=== PATIENT | female | born 1985 | race African-American/Black ===

== ENCOUNTER 2023-01-01 02:40 | Inpatient (IN) | payer OTHER, SELFPAY ==
[2023-01-01] MEDS ORDERED: Lorazepam 2 MG/ML VIAL SLOW IVP PRN ×2 (04:44→11:21)
[2023-01-01] MEDS ORDERED: Dextrose 5% in Water 1,000 ML IV SCH (04:45)
[2023-01-01] MEDS ORDERED: Ondansetron ODT 4 MG TAB SL PRN (04:45)
[2023-01-01] MEDS ORDERED: Ondansetron PF 4 MG/2 ML Vial IVP PRN (04:45)
[2023-01-01 05:05] VITALS: BMI 27.4
[2023-01-01] MEDS ORDERED: Lorazepam 1 MG TAB PO PRN (08:57)
[2023-01-01] MEDS ORDERED: Ondansetron ODT 4 MG TAB PO PRN (08:57)
[2023-01-01] MEDS ORDERED: Lorazepam 2 MG/ML VIAL IM PRN (08:57)
[2023-01-01] MEDS ORDERED: Sodium Chloride 0.9% 1,000 ML IV SCH (09:00)
[2023-01-01] MEDS ORDERED: Electrolyte Replacement Protocol 1 EACH FS SCH (09:00)
[2023-01-01] MEDS ORDERED: Electrolyte Replacement Protocol FS PRN (09:15)
[2023-01-01] MEDS: Lorazepam 1 MG TAB PO SCH ×3 (09:30→20:09)
[2023-01-01] MEDS: Thiamine HCl 200 MG/2 ML VIAL SLOW IVP SCH (09:30)
[2023-01-01] MEDS: Folic Acid 1 MG TAB PO SCH (09:30)
[2023-01-01] MEDS: Multivit, Therapeutic 1 TAB PO SCH (09:30)
[2023-01-01 10:32] LABS: #Monocytes 0.3 thou/uL (0.11-0.59); #Neutrophils 1.8 thou/uL (1.40-6.50); %Lymphocytes 44.3 % (21.0-51.0); %Monocytes 7.6 % (0.0-10.0); %Neutrophils 46.3 % (42.0-75.0); Hematocrit 29.2 % (36.0-47.0); Mean Corpuscular HGB CONC 34.2 g/dL (32.0-36.0); Mean Corpuscular Volume 99.3 fl (78.0-98.0); Mean Platelet Volume 10.1 fL (7.4-10.4); Platelet Count 133 10x3/uL (130-400); RBC Distribution Width 18.6 % (11.5-14.5); Red Blood Cell (RBC) Count 2.94 mill/uL (4.20-5.40)
[2023-01-01 10:57] LABS: ALT (SGPT) 64 U/L (8-55); AST (SGOT) 386 U/L (5-34); Albumin 3.5 g/dL (3.5-5.0); Alkaline Phosphatase 203 U/L (40-110); Anion Gap 13 mmol/L (10-20); BUN (Urea Nitrogen) 4 mg/dL (7.0-18.7); Bilirubin, Total 3.1 mg/dL (0.2-1.2); Calc. Creatinine Clearance 136 mL/min (70-130); Calcium 7.6 mg/dL (7.8-10.44); Carbon Dioxide 20 mmol/L (22-29); Chloride 100 mmol/L (98-107); Estimated GFR 104; Globulin 3.5 g/dL (2.4-3.5); Glucose 112 mg/dL (70-105); Magnesium 1.6 mg/dL (1.6-2.6); Sodium 130 mmol/L (136-145)
[2023-01-01] MEDS ORDERED: Potassium Chloride 20 MEQ TAB PO SCH ×2 (12:30→18:45)
[2023-01-01] MEDS ORDERED: Magnesium 2 GM/50 ML(in water) 2 GM in Premix Bag 1 BAG IVPB SCH (12:30)
[2023-01-01 14:00] LABS: INR-International Normal Ratio 1.1; Prothrombin Time 14.4 sec (12.0-14.7)
[2023-01-01] MEDS: Multivitamins, Adult 10 ML, Folic Acid 1 MG, Thiamine HCl 100 MG in Dextrose 5 %-0.45 %... IV SCH (14:03)
[2023-01-01 17:43] LABS: Potassium 3.3 mmol/L (3.5-5.1)
[2023-01-01] MEDS ORDERED: Metoprolol Tartrate 5 MG/5 ML VIAL IVP PRN (18:25)
[2023-01-02] MEDS: Lorazepam 1 MG TAB PO SCH ×3 (02:31→15:25)
[2023-01-02 05:05] LABS: Hematocrit 33.2 % (36.0-47.0); Mean Corpuscular HGB CONC 33.1 g/dL (32.0-36.0); Mean Corpuscular Hemoglobin 33.7 pg (27.0-31.0); Mean Corpuscular Volume 101.8 fl (78.0-98.0); Mean Platelet Volume 10.7 fL (7.4-10.4); Platelet Count 133 10x3/uL (130-400); RBC Distribution Width 18.6 % (11.5-14.5); Red Blood Cell (RBC) Count 3.26 mill/uL (4.20-5.40); White Blood Cell (WBC) Count 3.2 10x3/uL (4.8-10.8)
[2023-01-02 05:06] LABS: Delete Auto Diff?? YES; Manual Diff?? YES
[2023-01-02 05:30] LABS: ALT (SGPT) 70 U/L (8-55); AST (SGOT) 383 U/L (5-34); Albumin 3.7 g/dL (3.5-5.0); Alkaline Phosphatase 222 U/L (40-110); Anion Gap 13 mmol/L (10-20); BUN (Urea Nitrogen) Less than 4 mg/dL (7.0-18.7); Bilirubin, Total 3.8 mg/dL (0.2-1.2); Calc. Creatinine Clearance 138 mL/min (70-130); Calcium 8.6 mg/dL (7.8-10.44); Carbon Dioxide 19 mmol/L (22-29); Chloride 105 mmol/L (98-107); Estimated GFR 106; Globulin 3.6 g/dL (2.4-3.5); Glucose 92 mg/dL (70-105); Magnesium 1.8 mg/dL (1.6-2.6); Potassium 3.8 mmol/L (3.5-5.1); Protein, Total 7.3 g/dL (6.0-8.3); Sodium 133 mmol/L (136-145)
[2023-01-02 05:34] LABS: Anisocytosis SLIGHT = 6-15 cells HPF (0-5); Band 2 % (5-11); CellaVision Operator ID lab.abc; Eosinophils 1 % (0-10); Lymphocytes 55 % (21-51); Macrocytosis SLIGHT = 6-15 cells HPF (0-5); Metamyelocyte 1 % (0-0); Monocytes 4 % (0-10); Neutrophil 35 % (42-75); Nucleated RBC (Manual Ct) 1 % (0); Platelet Adequacy Comment Platelets Normal; Polychromasia SLIGHT = 2-3 cells HPF (0-2); Reactive Lymphocytes 1 % (0-10); Target Cells SLIGHT = 2-5 cells HPF (0-1); Total Cell Count 100
[2023-01-02] MEDS ORDERED: Magnesium 2 GM/50 ML(in water) 2 GM in Premix Bag 1 BAG IVPB SCH (08:00)
[2023-01-02 08:39] LABS: Phosphorus 1.7 mg/dL (2.3-4.7)
[2023-01-02] MEDS ORDERED: Lorazepam 1 MG TAB PO PRN (08:57)
[2023-01-02] MEDS: Multivit, Therapeutic 1 TAB PO SCH (09:54)
[2023-01-02] MEDS: PHOS-NAK 1 PKT PACK PO SCH ×2 (09:54→14:17)
[2023-01-02] MEDS: Folic Acid 1 MG TAB PO SCH (09:54)
[2023-01-02] MEDS: Thiamine HCl 200 MG/2 ML VIAL SLOW IVP SCH (11:41)
[2023-01-02] MEDS ORDERED: Lisinopril 20 MG TAB PO SCH (14:00)
[2023-01-02] MEDS: Multivitamins, Adult 10 ML, Folic Acid 1 MG, Thiamine HCl 100 MG in Dextrose 5 %-0.45 %... IV SCH (14:17)
[2023-01-02 15:18] VITALS: BP 130/95; TEMP 98.6
[2023-01-03] MEDS ORDERED: Lorazepam 1 MG TAB PO PRN (08:57)
[2023-01-03] MEDS ORDERED: Lisinopril 20 MG TAB PO SCH (09:00)
[2023-01-03] MEDS ORDERED: Lorazepam 0.5 MG TAB PO SCH (09:00)
[2023-01-04] MEDS ORDERED: Lorazepam 0.5 MG TAB PO PRN (08:57)
[2023-01-04] MEDS ORDERED: Thiamine 100 MG TAB PO SCH (09:00)
== END 2023-01-02 17:59 | disposition home or self-care (01) | DRG 433 ==
LOC: 2SE 04:00
PROVIDERS: ADMIT Internal Medicine; ATTEND Internal Medicine
PROC: HZ2ZZZZ Detoxification Services for Substance Abuse Treatment (ICD-10-PCS; principal; 2023-01-02)
DX: K70.10 Alcoholic hepatitis without ascites (principal); E87.20 Acidosis, unspecified; F10.939 Alcohol use, unspecified with withdrawal, unspecified; I10 Essential (primary) hypertension; R16.0 Hepatomegaly, not elsewhere classified; E83.42 Hypomagnesemia; G40.909 Epilepsy, unspecified, not intractable, without status epilepticus; E87.6 Hypokalemia; R79.89 Other specified abnormal findings of blood chemistry; Z71.41 Alcohol abuse counseling and surveillance of alcoholic; Z98.890 Other specified postprocedural states; Z82.49 Family history of ischemic heart disease and other diseases of the circulatory system
CPT/HCPCS: 36415; 76705; 80053; 83735; 84100; 85025; 85610; 95816; 95819; 95957; J3411; J3475; J7042; J7050; J7070